=== PATIENT | female | born 1970 | race Two or more races ===

== ENCOUNTER 2023-06-27 11:04 | Emergency (ER) | payer OTHER ==
[~2023-06-27] VITALS: Ht 157.5 cm; Wt 45.4 kg
[~2023-06-27 11:04] MED LIST: ORPH100T PO
[2023-06-27] MEDS ORDERED: IPRATROPIUM BROM5 GM MC (11:34)
[2023-06-27] MEDS ORDERED: SPIRIVA RESPIMAT4 G1 IH (11:34)
[2023-06-27] MEDS ORDERED: NURTEC ODT75 MG PO (11:35)
== END 2023-06-27 14:29 | disposition home or self-care (01) ==
LOC: ER 11:04
DX: S29.8XXA Other specified injuries of thorax, initial encounter (principal); X58.XXXA Exposure to other specified factors, initial encounter; Y93.89 Activity, other specified; Y92.89 Other specified places as the place of occurrence of the external cause; Y99.8 Other external cause status; I10 Essential (primary) hypertension; Z88.8 Allergy status to other drugs, medicaments and biological substances

== ENCOUNTER → 2024-06-24 | Emergency (ER) | payer OTHER ==
[~2024-06-24] VITALS: Ht 162.6 cm; Wt 46.7 kg
[~2024-06-24] MED LIST changes: +BUTALB/ACETAMINOPHEN/CAFFEINE 1 TAB TABLET PO ONE; +IPRATROPIUM BROM5 GM MC; +KEPPRA750 MG PO; +KETOROLAC TROMETHAMINE 60 MG VIAL IM ONE; +NURTEC ODT75 MG PO; +SPIRIVA RESPIMAT4 G1 IH
[2024-06-24 15:07] VITALS: BP 125/80; O2SAT 100
[2024-06-24 18:15] LABS: HEMATOCRIT 37.5 % (36.0-45.00); HEMOGLOBIN 12.4 g/dL (12.0-15.00); MEAN CELL VOLUME 86.4 fL (80.00-100.00); MEAN CORPUSCULAR HEMOGLOBIN 28.6 pg (27.00-32.0); MEAN CORPUSCULAR HGB CONC 33.1 g/dl (32.0-36.0); PLATELET COUNT 185 K/uL (150-450); RED BLOOD COUNT 4.34 M/uL (4.00-6.00); RED CELL DISTRIBUTION WIDTH 14.4 % (11.5-14.5)
[2024-06-24 18:21] LABS: ERYTHROCYTE SEDIMENTATION RATE 26 mm/hr
[2024-06-24 18:31] LABS: ALBUMIN 4.3 gm/dL (3.4-5.0); BILIRUBIN TOTAL 0.29 mg/dL (0.3-1.2); CALCIUM 9.4 mg/dL (8.5-10.1); CREATININE SERUM 0.83 mg/dL (0.55-1.02); GFR 71.37; GLOBULINA 3.6 G/DL (2.4-3.5); POTASSIUM 4.55 mEq/L (3.5-5.1); TOTAL PROTEIN 7.9 gm/dL (6.4-8.2)
[2024-06-24 19:15] LABS: COVID-19 AG NEGATIVE (NEGATIVE)
[2024-06-24 19:17] LABS: INFLUENZA A AG NEGATIVE (NEGATIVE)
== END | disposition home or self-care (01) ==
LOC: ER 14:35
PROVIDERS: Preventive Medicine Public Health & General Preventive Medicine
DX: S20.122A Blister (nonthermal) of breast, left breast, initial encounter (principal); X58.XXXA Exposure to other specified factors, initial encounter; Y92.89 Other specified places as the place of occurrence of the external cause; Z20.822 Contact with and (suspected) exposure to COVID-19; R56.9 Unspecified convulsions; Z88.0 Allergy status to penicillin; Z88.6 Allergy status to analgesic agent; Z88.9 Allergy status to unspecified drugs, medicaments and biological substances
CPT/HCPCS: 36415; 96372; 99283; J1885

== ENCOUNTER 2024-06-27 12:44 | Emergency (ER) | payer OTHER ==
[~2024-06-27] VITALS: Ht 162.6 cm; Wt 46.7 kg
[~2024-06-27 12:44] MED LIST changes: -BUTALB/ACETAMINOPHEN/CAFFEINE 1 TAB TABLET PO ONE; -KEPPRA750 MG PO; -KETOROLAC TROMETHAMINE 60 MG VIAL IM ONE
[2024-06-27] MEDS ORDERED: KEPPRA750 MG PO (13:10)
[2024-06-27 14:02] LABS: HEMATOCRIT 35.6 % (36.0-45.00); HEMOGLOBIN 11.9 g/dL (12.0-15.00); MEAN CELL VOLUME 86.9 fL (80.00-100.00); MEAN CORPUSCULAR HEMOGLOBIN 28.9 pg (27.00-32.0); MEAN CORPUSCULAR HGB CONC 33.3 g/dl (32.0-36.0); PLATELET COUNT 168 K/uL (150-450); RED CELL DISTRIBUTION WIDTH 14.5 % (11.5-14.5)
== END 2024-06-27 15:51 | disposition home or self-care (01) ==
LOC: ER 12:45
PROVIDERS: General Practice
DX: S20.122A Blister (nonthermal) of breast, left breast, initial encounter (principal); X58.XXXA Exposure to other specified factors, initial encounter; Y93.89 Activity, other specified; Y92.89 Other specified places as the place of occurrence of the external cause; Y99.9 Unspecified external cause status; I10 Essential (primary) hypertension; Z88.6 Allergy status to analgesic agent; Z88.0 Allergy status to penicillin; Z88.8 Allergy status to other drugs, medicaments and biological substances; Z91.048 Other nonmedicinal substance allergy status

== ENCOUNTER 2024-07-24 13:55 | Inpatient (IN) | payer OTHER ==
[~2024-07-24] VITALS: Ht 152.4 cm; Wt 544.3 kg
[~2024-07-24 13:55] MED LIST changes: +KEPPRA750 MG PO
--- NOTE | 2024-07-24 14:21 | NUR ---
AL MOMENTO DE TRIAGE PACIENTE SE ENCUENTRA DESORIENTADA REFIERE TENER DOLOR DE DEISY HACE VARIOS MALAVE. PACIENTE REFIERE ESTAR MAREADA Y EN LA MANANA DE HOY TUVO REFUGIO CONVULSION. SE REALIZA EKG Y SE PRESENTA A DR RILEY QUIEN ORDENA QUE SE UBIQUE A PACIENTE EN MARY SIN MONITOR. SE BAUTISTA S/V Y SE UBICA A PACIENTE.
[2024-07-24] MEDS ORDERED: LORazepam 2 MG/ML VIAL IV PUSH PRN (14:30)
[2024-07-24] MEDS ORDERED: LevETIRAcetam 500 MG/5 ML VIAL IV SCH (14:30)
[2024-07-24] MEDS ORDERED: LevETIRAcetam 500 MG/5 ML VIAL IV ONE ×2 (15:29→16:09)
[2024-07-24] MEDS ORDERED: LORazepam 2 MG/ML VIAL ONE ×3 (15:31→18:41)
--- NOTE | 2024-07-24 15:47 | NUR ---
SE EDUCA A PTE SOBRE [place] MEDICO, SE BAUTISTA MUESTRAS DE LABORATORIO UTILIZANDO MEDIDAS ASEPTICAS. SE COLOCA H/L SHERON DE EDEMA. SE ADMINSITRAN MEDICAMENTOS BESS ORDEN MEDICA. SE NOTIFICA ESTUDIO DE CT PENDIENTE.
[2024-07-24 15:58] LABS: BASO % 0.6 % (0.1-1.2); EOS # 0.15 (0.04-0.54); EOS % 2.8 % (0.7-7.0); HEMOGLOBIN 12.3 g/dL (11.2-15.7); LYMPH # 1.95 (1.18-3.74); MONO # 0.39 (0.24-0.82); MONO % 7.4 % (4.7-12.5); NEUT # 2.74 (1.56-6.13); PLATELET COUNT 178 K/uL (163-369); RED BLOOD COUNT 4.39 M/uL (3.93-5.22); RED CELL DISTRIBUTION WIDTH 14.8 % (11.6-14.4)
[2024-07-24] MEDS ORDERED: LevETIRAcetam 500 MG/5 ML VIAL IV STA (16:22)
[2024-07-24] MEDS ORDERED: LORazepam 2 MG/ML VIAL IV STA (16:22)
[2024-07-24 16:24] LABS: ALBUMIN 4.1 gm/dL (3.4-5.0); BILIRUBIN TOTAL 0.28 mg/dL (0.3-1.2); CALCIUM 8.8 mg/dL (8.5-10.1); CREATININE SERUM 0.79 mg/dL (0.55-1.02); GFR 75.56; GLOBULINA 3.8 G/DL (2.4-3.5); POTASSIUM 3.75 mEq/L (3.5-5.1); TOTAL PROTEIN 7.9 gm/dL (6.4-8.2)
[2024-07-24] MEDS ORDERED: FAMOtidine 10 MG/ML (4ML VIAL) IV ONE (17:00)
[2024-07-24] MEDS ORDERED: 0.9 % SODIUM CHLORIDE 1,000 ML IV ONE (17:00)
[2024-07-24] MEDS ORDERED: FAMOTIDINE/PF 20 MG/2 ML VIAL ONE (17:47)
[2024-07-24 18:03] LABS: URINE APPEARANCE Clear; URINE BILIRRUBIN Negative (NEGATIVE); URINE BLOOD Negative; URINE COLOR Yellow; URINE GLUCOSE Negative (NEGATIVE); URINE KETONE Negative (NEGATIVE); URINE LEUKOCYTE Negative; URINE NITRATE Negative; URINE PROTEIN Negative (NEGATIVE); URINE UROBILINOGEN 0.2 E.U./dl
[2024-07-24 18:04] LABS: URINE BACTERIA 6.1 uL (0.0-1933)
[2024-07-24 18:09] LABS: URINE RBC 1.3 uL (0.0-20.8); URINE WBC 1.2 uL (0.0-23.2)
[2024-07-24 18:10] LABS: URINE EPITHELIAL CELLS 0.3 uL (0.0-38.8)
[2024-07-24 18:31] LABS: COCAINE NEGATIVE (NEGATIVE); METHADONE NEGATIVE (NEGATIVE); OPIATES NEGATIVE (NEGATIVE); THC ( Cannabinoids) NEGATIVE (NEGATIVE)
[2024-07-24 18:48] LABS: COVID-19 AG NEGATIVE (NEGATIVE)
[2024-07-24 18:51] LABS: INFLUENZA A AG NEGATIVE (NEGATIVE)
--- NOTE | 2024-07-24 18:59 | NUR ---
PTE CON CONVULSION ACTIVA, SE NOTIFICA A MD. SE ADMINISTRA ATIVAN 2MG IV SEGUNO RDEN MEDICA, PTE SE TRASLADA A UNIDAD DE CRITICO. SE NOTIFICAN ABGS PENDIENTES A REALIZAR.PTE SE CONECTA A MONITOR CARDIACO CON OXIMETRIA CONTINUA. PTE CON ESTUDIO DE MRI PENDIENTE A REALIZAR.
[2024-07-24] MEDS ORDERED: LORazepam 2 MG/ML VIAL IV PUSH ONE (19:00)
[2024-07-24 19:04] LABS: ABG PH 7.378 (7.35-7.45); ABG PO2 107.5 mmHg (80-100); ABG pCO2 45.8 mmHg (35-45); BASE EXCESS 0.7 mmol/l; BICARBONATE 26.4 mmol/l (23-25); Tco2 27.8 mmol/l
[2024-07-24 19:25] LABS: allen test SATISFACTORY; mode ROOM AIR; o2 21 %; puncture site RADIAL RIGHT
[2024-07-24] MEDS ORDERED: ACETAMINOPHEN 500 MG GEL..CAP PO PRN (20:30)
[2024-07-24] MEDS ORDERED: 0.9 % SODIUM CHLORIDE 1,000 ML IV SCH (20:30)
[2024-07-24] MEDS ORDERED: ONDANSETRON HCL 4 MG in 0.9 % SODIUM CHLORIDE 50 ML IV PRN (20:30)
[2024-07-24 21:41] VITALS: BP 114/57
[2024-07-24 22:06] LABS: INR 1.04; PARTIAL THROMBOPLASTIN TIME 24.7 SECONDS (22.0-34.0); PROTHROMBIN TIME 11.3 SECONDS (9.0-11.5)
[2024-07-24 22:34] LABS: MAGNESIUM 1.8 mg/dL (1.8-2.4); PHOSPHOROUS 2.7 mg/dL (2.5-4.9)
[2024-07-24 23:00] VITALS: BP 120/68; O2SAT 10
[2024-07-25] VITALS (10 sets, daily range): BP systolic 99–134; BP diastolic 44–81; O2SAT 90–100
[2024-07-25] MEDS ORDERED: LevETIRAcetam 500 MG/5 ML VIAL IV SCH (05:00)
[2024-07-25] MEDS ORDERED: PANTOPRAZOLE SODIUM 40 MG/VIAL VIAL IV SCH (09:00)
[2024-07-25] MEDS ORDERED: ATORVASTATIN CALCIUM 20 MG TABLET PO SCH (09:00)
[2024-07-25] MEDS ORDERED: LORazepam 2 MG/ML VIAL ONE (13:30)
[2024-07-26 01:22] VITALS: O2SAT 98
[2024-07-26 01:23] VITALS: BP 117/77; O2SAT 100
[2024-07-26 04:36] VITALS: O2SAT 100
[2024-07-26] MEDS ORDERED: LORazepam 2 MG/ML VIAL IV PUSH PRN (08:30)
[2024-07-26 08:47] VITALS: O2SAT 99
[2024-07-26 09:18] VITALS: BP 111/68; O2SAT 100
[2024-07-26] MEDS ORDERED: CLONAZEPAM0.25 MG PO (16:36)
[2024-07-26] MEDS ORDERED: KEPPRA750 MG PO (16:36)
[2024-07-26] MEDS ORDERED: LevETIRAcetam 5 MG/1 ML REDILUIDO IV SCH (17:00)
[2024-07-26] MEDS ORDERED: LevETIRAcetam 500 MG TAB. PO SCH (17:00)
== END 2024-07-26 17:02 | disposition home or self-care (01) | DRG 880 ==
LOC: ER 14:36 → MEDJ 21:01 → ICU-2 21:01 → SEC-K 21:01 → MEDJ 07-25 13:25
PROVIDERS: General Practice; ADMIT Internal Medicine; ATTEND Internal Medicine
PROC: B020ZZZ Computerized Tomography (CT Scan) of Brain (ICD-10-PCS; principal; 2024-07-24)
PROC: 4A12X4Z Monitoring of Cardiac Electrical Activity, External Approach (ICD-10-PCS; 2024-07-24)
PROC: B030YZZ Magnetic Resonance Imaging (MRI) of Brain using Other Contrast (ICD-10-PCS; 2024-07-24)
DX: F44.5 Conversion disorder with seizures or convulsions (principal); Z88.6 Allergy status to analgesic agent; Z88.0 Allergy status to penicillin
CPT/HCPCS: 70545